=== PATIENT | female | born 1995 | race African-American/Black ===

== ENCOUNTER 2023-07-27 16:51 | Emergency (ER) | payer OTHER ==
[2023-07-27 17:21] VITALS: TEMP 99
[2023-07-27] MEDS ORDERED: LORazepam 0.5 MG TAB PO PRN (18:09)
[2023-07-27] MEDS ORDERED: LORazepam 2 MG/ML INJ IV PRN ×4 (18:09→20:18)
[2023-07-27] MEDS ORDERED: THIAMINE 100 MG/ML 2 ML VIAL IM STA (18:09)
[2023-07-27] MEDS ORDERED: LORazepam 1 MG TAB PO PRN ×4 (18:09)
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
[2023-07-27 18:45] LABS: Basophils % (A) 0 %; Eosinophils % (A) 1 %; HGB 12.9 gm/dL (11.4-16.0); Lymphocytes # (A) 1.6 k/uL (1.0-4.8); Lymphocytes % (A) 34 %; MCH 32.9 pg (25.0-35.0); MCV 96.7 fL (80.0-100.0); Mean Platelet Volume 7.9; Monocytes # (A) 0.3 k/uL (0-1.0); Monocytes % (A) 6 %; Neutrophils # (A) 2.8 k/uL (1.3-7.7); Neutrophils % (A) 57 %; Platelet Count 218 k/uL (150-450); RBC 3.93 m/uL (3.80-5.40); RDW 15.3 % (11.5-15.5); WBC 4.9 k/uL (3.8-10.6)
[2023-07-27 18:47] LABS: Appearance,Urine Clear (Clear); Color,Urine Amber; Protein,Urine Trace (Negative); Specific Gravity,Urine 1.025 (1.001-1.035)
[2023-07-27 18:48] LABS: Bilirubin,Urine Negative (Negative); Blood,Urine Negative (Negative); Glucose,Urine (UA) Negative (Negative); Ketones,Urine 1+ (Negative); Leukocyte Esterase,Urine Negative (Negative); Nitrite,Urine Negative (Negative); Urobilinogen,Urine <2.0 mg/dL (<2.0)
[2023-07-27] MEDS ORDERED: ONDANSETRON 4 MG/2 ML VIAL IVP STA (18:52)
[2023-07-27 19:11] LABS: ALT 117 U/L (4-34); African American GFR (CKD) >90 (>60 ml/min/1.73 sqM); Albumin 4.4 g/dL (3.5-5.0); Alcohol <10 mg/dL; Amylase 47 U/L (30-110); Anion Gap 10 mmol/L; Blood Urea Nitrogen 3 mg/dL (7-17); Calcium 9.2 mg/dL (8.4-10.2); Carbon Dioxide 28 mmol/L (22-30); Chloride 101 mmol/L (98-107); Glucose 84 mg/dL (74-99); Lipase 57 U/L (23-300); Non-African American GFR(CKD) >90 (>60 ml/min/1.73 sqM); Sodium 139 mmol/L (137-145); Total Bilirubin 0.9 mg/dL (0.2-1.3)
[2023-07-27 19:13] LABS: AST 204 U/L (14-36); Alkaline Phosphatase 142 U/L (38-126); Magnesium 1.3 mg/dL (1.6-2.3); Potassium 4.3 mmol/L (3.5-5.1)
[2023-07-27] MEDS ORDERED: KETOROLAC 15 MG/ML 1 ML VIAL IVP STA (19:28)
[2023-07-27] MEDS ORDERED: SODIUM CHLORIDE 0.9% 1,000 ML IV ONE (19:38)
[2023-07-27 20:02] VITALS: RESP 19
[2023-07-27] MEDS ORDERED: LORazepam 2 MG/ML INJ IV STA (22:42)
[2023-07-27 23:14] VITALS: BP 159/96; PULSE 96
[2023-07-28] MEDS ORDERED: THIAMINE 100 MG TAB PO SCH (09:00)
== END 2023-07-27 23:34 | disposition home or self-care (01) ==
LOC: EC 16:51
DX: S39.91XA Unspecified injury of abdomen, initial encounter (principal); F17.200 Nicotine dependence, unspecified, uncomplicated; Y04.0XXA Assault by unarmed brawl or fight, initial encounter
CPT/HCPCS: 99284 ×2; 96374 ×2; 96375 ×3; 96376 ×2; 96361 ×4; 36415; 80053; 82150; 82550; 83690; 83735; 85025; 81003; 81025; 96372; G0480; J2060; J3411; J2405; J1885; 80320

== ENCOUNTER 2024-09-04 16:46 | Observation (INO) | payer OTHER ==
[2024-09-04] MEDS ORDERED: LORazepam 2 MG/ML INJ IV PRN (17:33)
[2024-09-04 18:17] LABS: Basophils % (A) 0 %; Eosinophils % (A) 1 %; HCT 39.8 % (34.0-46.0); HGB 13.7 gm/dL (11.4-16.0); Lymphocytes # (A) 0.7 k/uL (1.0-4.8); Lymphocytes % (A) 26 %; MCH 32.1 pg (25.0-35.0); MCHC 34.4 g/dL (31.0-37.0); MCV 93.4 fL (80.0-100.0); Mean Platelet Volume 8.1; Monocytes # (A) 0.2 k/uL (0-1.0); Monocytes % (A) 7 %; Neutrophils # (A) 1.7 k/uL (1.3-7.7); Neutrophils % (A) 63 %; Platelet Count 133 k/uL (150-450); RBC 4.26 m/uL (3.80-5.40); RDW 14.4 % (11.5-15.5); WBC 2.6 k/uL (3.8-10.6)
[2024-09-04 18:48] LABS: Influenza A Detected (Not Detectd); Influenza B Not Detected (Not Detectd); RSV Not Detected (Not Detectd)
[2024-09-04] MEDS: SODIUM CHLORIDE 0.9% 1,000 ML IV STA ×3 (18:51→21:42)
[2024-09-04] MEDS: ACETAMINOPHEN TAB 500 MG TAB PO STA (18:52)
[2024-09-04] MEDS: IBUPROFEN 800 MG TAB PO STA (18:53)
[2024-09-04] MEDS: LORazepam 2 MG/ML INJ IV STA (18:54)
[2024-09-04] MEDS: ONDANSETRON 4 MG/2 ML VIAL IVP STA (18:55)
[2024-09-04 19:16] LABS: Chloride 106 mmol/L (98-107)
[2024-09-04 19:19] LABS: ALT 110 U/L (4-34); African American GFR (CKD) >90 (>60 ml/min/1.73 sqM); Anion Gap 11 mmol/L; Blood Urea Nitrogen 9 mg/dL (7-17); Calcium 8.1 mg/dL (8.4-10.2); Carbon Dioxide 18 mmol/L (22-30); Glucose 72 mg/dL (74-99); Non-African American GFR(CKD) >90 (>60 ml/min/1.73 sqM); Sodium 135 mmol/L (137-145)
[2024-09-04 19:36] LABS: Albumin 3.9 g/dL (3.5-5.0); Potassium 4.9 mmol/L (3.5-5.1); Total Protein 7.5 g/dL (6.3-8.2)
[2024-09-04 19:37] LABS: AST 217 U/L (14-36); Alkaline Phosphatase 123 U/L (38-126); Magnesium 1.3 mg/dL (1.6-2.3); Total Bilirubin 1.2 mg/dL (0.2-1.3)
[2024-09-04 19:40] LABS: Alcohol 194 mg/dL
--- NOTE | 2024-09-04 20:04 | XR ---
EXAMINATION TYPE: XR chest 2V DATE OF EXAM: 09/04/2024 7:16 PM COMPARISON: None. CLINICAL INDICATION: Female, 28 years old with history of fever, cough, TECHNIQUE: XR chest 2V view(s) obtained. FINDINGS: The heart size is normal. The pulmonary vasculature is normal. Mild streak atelectasis in the lateral right perihilar region IMPRESSION: 1. Streaky atelectasis right hilar region [facility], , 09/04/2024 8:02 PM
[2024-09-04 20:10] LABS: HCG,Qualitative Serum Not Detected
[2024-09-04] MEDS ORDERED: ONDANSETRON 4 MG/2 ML VIAL IVP PRN (21:19)
[2024-09-04] MEDS ORDERED: NALOXONE 0.4 MG/ML 1 ML VIAL IV PRN (21:19)
--- NOTE | 2024-09-04 21:24 | ED ---
General Adult HPI - General Chief complaint: Alcohol Stated complaint: etoh Time Seen by Provider: 09/04/24 17:25 Source: patient, EMS, RN notes reviewed, old records reviewed Mode of arrival: EMS - History of Present Illness Initial comments: Patient is a 28-year-old female presents emergency department complaining of fevers, cough, congestion, alcohol intoxication. Has a history remarkable for alcohol withdrawals with seizures. Is not compliant with medications. States she has been feeling febrile with a mild headache and generalized bodyaches for a few days. Presented to [facility] for admission for alcohol intoxication however was sent here due to being treatment, intoxicated with alcohol. Endorses cough, congestion. Denies nausea or vomiting. Denies diarrhea. Presents for further evaluation at this time. - Related Data Home Medications Medication Instructions Recorded Confirmed Cariprazine HCl [Vraylar] 6 mg PO DAILY 09/04/24 09/04/24 Folic Acid 1 mg PO DAILY 09/04/24 09/04/24 LORazepam [Ativan] 1 mg PO Q8H PRN 09/04/24 09/04/24 Metoprolol Succinate [Metoprolol 25 mg PO DAILY 09/04/24 09/04/24 Succinate ER] Multivitamins, Thera [Multivitamin 1 tab PO DAILY 09/04/24 09/04/24 (formulary)] Naltrexone HCl [Revia] 50 mg PO DAILY 09/04/24 09/04/24 Ondansetron [Zofran] 4 mg PO Q6H PRN 09/04/24 09/04/24 QUEtiapine FUMARATE [SEROquel] 600 mg PO HS 09/04/24 09/04/24 Venlafaxine HCl [Effexor XR] 75 mg PO DAILY 09/04/24 09/04/24 amLODIPine [Norvasc] 10 mg PO DAILY 09/04/24 09/04/24 Allergies Allergy/AdvReac Type Severity Reaction Status Date / Time No Known Allergies Allergy Verified 09/04/24 18:34 Review of Systems ROS Statement: Those systems with pertinent positive or pertinent negative responses have been documented in the HPI. ROS Other: All systems not noted in ROS Statement are negative. Past Medical History Past Medical History: No Reported History, Hypertension Past Surgical History: No Surgical Hx Reported Past Psychological History: Anxiety, Bipolar Smoking Status: Current every day smoker Past Alcohol Use History: Abuse Past Drug Use History: None Reported Course Vital Signs 09/04/24 09/04/24 09/04/24 16:59 19:35 21:27 Temperature 101.0 F H 99.2 F 100.5 F H Pulse Rate 123 H 143 H Respiratory 18 18 Rate Blood Pressure 139/83 135/83 O2 Sat by Pulse 100 98 Oximetry Medical Decision Making - Medical Decision Making Was pt. sent in by a medical professional or institution (, VI, SOLUTION ADVISOR, urgent care, hospital, or half-way...) When possible be specific @ -Sent from [facility] for alcohol intoxication as well as fever. Did you speak to anyone other than the patient for history (EMS, parent, family, police, friend...)? What history was obtained from this source @ -No Did you review nursing and triage notes (agree or disagree)? Why? @ -I reviewed and agree with nursing and triage notes Were old charts reviewed (outside hosp., previous admission, EMS record, old EKG, old radiological studies, urgent care reports/EKG's, half-way records)? Report findings @ -Old charts reviewed confirming patient's prior medications including metoprolol. Differential Diagnosis (chest pain, altered mental status, abdominal pain women, abdominal pain men, vaginal bleeding, weakness, fever, dyspnea, syncope, headache, dizziness, GI bleed, back pain, seizure, CVA, palpatations, mental health, musculoskeletal)? @ -Alcohol tox occasion, alcohol drawls, influenza, COVID, flu, RSV. This list is not all inclusive. EKG interpreted by me (3pts min.). @ -As above X-rays interpreted by me (1pt min.). @ -Chest x-ray reveals no obvious acute cardiopulmonary process. CT interpreted by me (1pt min.). @ -None done U/S interpreted by me (1pt. min.). @ -None done What testing was considered but not performed or refused? (CT, X-rays, U/S, labs)? Why? @ -None What meds were considered but not given or refused? Why? @ -None Did you discuss the management of the patient with other professionals (professionals i.e. VI Garcia, SOLUTION ADVISOR, lab, RT, psych nurse, social insurance analyst, chicken boner, teacher, plant protection officer, director case management)? Give summary @ -Discussed with the admitting provider, Dr. Will who accepted the admission. Was smoking cessation discussed for >3mins.? @ -No Was critical care preformed (if so, how long)? @ -No Were there social determinants of health that impacted care today? How? (Homelessness, low income, unemployed, alcoholism, drug addiction, transportation, low edu. Level, literacy, decrease access to med. care, [facility], rehab)? @ -No Was there de-escalation of care discussed even if they declined (Discuss DNR or withdrawal of care, Hospice)? DNR status @ -No What co-morbidities impacted this encounter? (DM, HTN, Smoking, COPD, CAD, Cancer, CVA, ARF, Chemo, Hep., AIDS, mental health diagnosis, sleep apnea, morbid obesity)? @ -Alcohol abuse with alcohol withdrawal history Was patient admitted / discharged? Hospital course, mention meds given and route, prescriptions, significant lab abnormalities, going to OR and other pertinent info. @ -Patient presents emergency department with febrile illness as well as alcohol intoxication and mild alcohol withdrawals. Has a history of significant alcohol withdrawals. We will obtain generalized workup. Patient agreement this plan. Vitals are remarkable for febrile illness and patient will be given IV fluids, antipyretic medications. She was in agreement this plan. Patient placed on CIWA protocol. Patient administered a dose of IV Ativan. EKG revealed sinus tachycardia. Laboratory studies remarkable for hypomagnesemia which was replenished. Patient is not toxic with alcohol 194. Patient is influenza A positive. Chest x-ray unremarkable. On reevaluation, patient leta tachycardic. It does appear she is on metoprolol and states she has been noncompliant with medications. She will be given a dose of metoprolol admitted for alcohol intoxication, influenza infection, with her history of alcohol withdrawals. Patient was in agreement this plan. I spoke with the admitting provider, Dr. Will who accepted the admission. Undiagnosed new problem with uncertain prognosis? @ -No Drug Therapy requiring intensive monitoring for toxicity (Heparin, Nitro, Insulin, Cardizem)? @ -No Were any procedures done? @ -No Diagnosis/symptom? @ -Influenza A infection, alcohol intoxication, history of alcohol withdrawals, hypomagnesemia Acute, or Chronic, or Acute on Chronic? @ -Acute Uncomplicated (without systemic symptoms) or Complicated (systemic symptoms)? @ -Complicated Side effects of treatment? @ -No Exacerbation, Progression, or Severe Exacerbation? @ -No Poses a threat to life or bodily function? How? (Chest pain, [place], [place], pneumonia, PE, COPD, DKA, ARF, appy, cholecystitis, CVA, Diverticulitis, Homicidal, Suicidal, threat to staff... and all critical care pts) @ -Yes - Lab Data Result diagrams: 09/04/24 18:10 09/04/24 18:54 Lab Results 09/04/24 09/04/24 09/04/24 Range/Units 18:00 18:10 18:14 WBC 2.6 L (3.8-10.6) k/uL RBC 4.26 (3.80-5.40) m/uL Hgb 13.7 (11.4-16.0) gm/dL Hct 39.8 (34.0-46.0) % MCV 93.4 (80.0-100.0) fL MCH 32.1 (25.0-35.0) pg MCHC 34.4 (31.0-37.0) g/dL RDW 14.4 (11.5-15.5) % Plt Count 133 L (150-450) k/uL MPV 8.1 Neutrophils % 63 % Lymphocytes % 26 % Monocytes % 7 % Eosinophils % 1 % Basophils % 0 % Neutrophils # 1.7 (1.3-7.7) k/uL Lymphocytes # 0.7 L (1.0-4.8) k/uL Monocytes # 0.2 (0-1.0) k/uL Eosinophils # 0.0 (0-0.7) k/uL Basophils # 0.0 (0-0.2) k/uL Sodium (137-145) mmol/L Potassium (3.5-5.1) mmol/L Chloride (98-107) mmol/L Carbon Dioxide (22-30) mmol/L Anion Gap mmol/L BUN (7-17) mg/dL Creatinine (0.52-1.04) mg/dL Est GFR (CKD-EPI)AfAm (>60 ml/min/1.73 sqM) Est GFR (CKD-EPI)NonAf (>60 ml/min/1.73 sqM) Glucose (74-99) mg/dL Calcium (8.4-10.2) mg/dL Magnesium (1.6-2.3) mg/dL Total Bilirubin (0.2-1.3) mg/dL AST (14-36) U/L ALT (4-34) U/L Alkaline Phosphatase (38-126) U/L Total Protein (6.3-8.2) g/dL Albumin (3.5-5.0) g/dL HCG, Qual Serum Alcohol mg/dL Influenza Type A (PCR) Detected A (Not Detectd) Influenza Type B (PCR) Not Detected (Not Detectd) RSV (PCR) Not Detected (Not Detectd) SARS-CoV-2 (PCR) Not Detected (Not Detectd) Group A Strep (PCR) NOT DETECTED (Not Detectd) 09/04/24 Range/Units 18:54 WBC (3.8-10.6) k/uL RBC (3.80-5.40) m/uL Hgb (11.4-16.0) gm/dL Hct (34.0-46.0) % MCV (80.0-100.0) fL MCH (25.0-35.0) pg MCHC (31.0-37.0) g/dL RDW (11.5-15.5) % Plt Count (150-450) k/uL MPV Neutrophils % % Lymphocytes % % Monocytes % % Eosinophils % % Basophils % % Neutrophils # (1.3-7.7) k/uL Lymphocytes # (1.0-4.8) k/uL Monocytes # (0-1.0) k/uL Eosinophils # (0-0.7) k/uL Basophils # (0-0.2) k/uL Sodium 135 L (137-145) mmol/L Potassium 4.9 (3.5-5.1) mmol/L Chloride 106 (98-107) mmol/L Carbon Dioxide 18 L (22-30) mmol/L Anion Gap 11 mmol/L BUN 9 (7-17) mg/dL Creatinine 0.58 (0.52-1.04) mg/dL Est GFR (CKD-EPI)AfAm >90 (>60 ml/min/1.73 sqM) Est GFR (CKD-EPI)NonAf >90 (>60 ml/min/1.73 sqM) Glucose 72 L (74-99) mg/dL Calcium 8.1 L (8.4-10.2) mg/dL Magnesium 1.3 L (1.6-2.3) mg/dL Total Bilirubin 1.2 (0.2-1.3) mg/dL AST 217 H (14-36) U/L ALT 110 H (4-34) U/L Alkaline Phosphatase 123 (38-126) U/L Total Protein 7.5 (6.3-8.2) g/dL Albumin 3.9 (3.5-5.0) g/dL HCG, Qual Not Detected Serum Alcohol 194 mg/dL Influenza Type A (PCR) (Not Detectd) Influenza Type B (PCR) (Not Detectd) RSV (PCR) (Not Detectd) SARS-CoV-2 (PCR) (Not Detectd) Group A Strep (PCR) (Not Detectd) - EKG Data -: EKG Interpreted by Me EKG Comments: 12-lead Electrocardiogram Interpretation Note EKG was reviewed and interpreted by myself. 12-lead ECG performed at 2120 is interpreted by me as revealing sinus tachycardia at a rate of 131 beats per minute. Ava is normal. LA interval is 132 ms, QRS durations 84 ms, QTc is 410 ms.. There were no ST or T wave abnormalities to suggest myocardial ischemia or injury. R wave progression across the precordium was satisfactory. By my in terpretation this EKG is non-diagnostic for acute ischemia. Disposition Clinical Impression: Alcoholic intoxication, Alcohol withdrawal, Influenza A, Hypomagnesemia Disposition: ADMITTED IP TO THIS HOSP Condition: Stable Referrals: None,Stated [Primary Care Provider] - 1-2 days Time of Disposition: 20:20
[2024-09-04] MEDS ORDERED: SODIUM CHLORIDE 0.9% 1,000 ML IV SCH (21:30)
[2024-09-04] MEDS ORDERED: POTASSIUM CHLORIDE ER 20 MEQ TAB.ER PO STA (21:40)
[2024-09-04] MEDS: MAGNESIUM SULFATE-D5W PMX 1 GM in DEXTROSE/WATER 1 100ML.BAG IVPB ONE (21:41)
[2024-09-04] MEDS: IBUPROFEN 600 MG TAB PO STA (21:51)
[2024-09-04] MEDS: METOPROLOL SUCCINATE (ER) 25 MG TAB.ER.24H PO STA (21:52)
[2024-09-04] MEDS: LORazepam 2 MG/ML INJ IV PRN (21:53)
[2024-09-05] MEDS: QUEtiapine 200 MG TAB PO STA (00:10)
[2024-09-05] MEDS: LORATADINE 10 MG TAB PO STA (00:10)
[2024-09-05] MEDS: LORazepam 2 MG/ML INJ IV PRN (02:34)
[2024-09-05 04:30] LABS: Basophils % (A) 1 %; Eosinophils % (A) 1 %; HCT 34.7 % (34.0-46.0); HGB 11.4 gm/dL (11.4-16.0); Lymphocytes # (A) 0.3 k/uL (1.0-4.8); Lymphocytes % (A) 19 %; MCH 31.8 pg (25.0-35.0); MCV 96.2 fL (80.0-100.0); Mean Platelet Volume 6.9; Monocytes # (A) 0.1 k/uL (0-1.0); Monocytes % (A) 6 %; Neutrophils # (A) 1.1 k/uL (1.3-7.7); Neutrophils % (A) 72 %; Platelet Count 105 k/uL (150-450); WBC 1.5 k/uL (3.8-10.6)
[2024-09-05 04:44] LABS: ALT 127 U/L (4-34); AST 414 U/L (14-36); African American GFR (CKD) >90 (>60 ml/min/1.73 sqM); Albumin 3.2 g/dL (3.5-5.0); Alkaline Phosphatase 114 U/L (38-126); Anion Gap 7 mmol/L; Blood Urea Nitrogen 12 mg/dL (7-17); Calcium 7.6 mg/dL (8.4-10.2); Carbon Dioxide 22 mmol/L (22-30); Chloride 107 mmol/L (98-107); Glucose 95 mg/dL (74-99); Non-African American GFR(CKD) >90 (>60 ml/min/1.73 sqM); Potassium 3.7 mmol/L (3.5-5.1); Sodium 136 mmol/L (137-145); Total Bilirubin 0.5 mg/dL (0.2-1.3); Total Protein 6.3 g/dL (6.3-8.2)
[2024-09-05] MEDS: IBUPROFEN 400 MG TAB PO PRN (05:45)
[2024-09-05] MEDS: ACETAMINOPHEN TAB 325 MG TAB PO PRN (06:53)
[2024-09-05] MEDS: amLODIPine 10 MG TAB PO SCH (08:05)
[2024-09-05] MEDS: METOPROLOL SUCCINATE (ER) 25 MG TAB.ER.24H PO SCH (08:05)
[2024-09-05] MEDS: VENLAFAXINE HCL ER 75 MG CAP PO SCH (08:05)
[2024-09-05] MEDS: NALTREXONE HCL 50 MG TAB PO SCH (08:05)
[2024-09-05] MEDS: NON FORMULARY DRUG (Cariprazine Hcl [Vraylar] 6 MG Capsule) PO SCH (09:10)
[2024-09-05] MEDS: FOLIC ACID 1 MG TAB PO SCH (09:16)
[2024-09-05] MEDS: HYDROcodone/APAP 5-325MG 1 EACH TAB PO STA (09:16)
[2024-09-05] MEDS: ACETAMINOPHEN IV (For NPO) 1,000 MG in EMPTY BAG 1 BAG IVPB ONE (09:16)
[2024-09-05] MEDS: OSELTAMIVIR 75 MG CAP PO SCH (09:17)
[2024-09-05] MEDS: MULTIVITAMINS, THERA 1 EACH TAB PO SCH (09:17)
[2024-09-05 11:13] LABS: Appearance,Urine Cloudy (Clear); Bacteria,Urine Rare /hpf; Bilirubin,Urine Negative (Negative); Blood,Urine Negative (Negative); Color,Urine Yellow; Glucose,Urine (UA) Negative (Negative); Ketones,Urine Negative (Negative); Leukocyte Esterase,Urine Negative (Negative); Mucus,Urine Rare /hpf; Nitrite,Urine Negative (Negative); PH, Urine 5.5 (5.0-8.0); Protein,Urine 1+ (Negative); Specific Gravity,Urine 1.022 (1.001-1.035); Squamous Epithelial Cell,Urine 5 /hpf (0-4); Urobilinogen,Urine <2.0 mg/dL (<2.0); WBC,Urine 3 /hpf (0-5)
--- NOTE | 2024-09-05 12:32 | P.HPIM ---
History of Present Illness 28-year-old female came in with complaints of fever cough and congestion found to have influenza A infection patient lives at [facility] last drink was 2 days ago and patient is presently having withdrawals as well patient d rinks about 3 pints of hard liquor every day is willing to quit alcohol. Patient is having high-grade fevers is tachycardic at this time. Patient's liver enzymes are elevated as well secondary to alcoholism. REVIEW OF SYSTEMS: All other systems are negative except those mentioned in the HPI PHYSICAL EXAMINATION: GENERAL: The patient is alert and oriented x3, not in any acute distress. Well developed, well nourished. HEENT: Pupils are round and equally reacting to light. EOMI. No scleral icterus. No conjunctival pallor. Normocephalic, atraumatic. No pharyngeal erythema. No thyromegaly. CARDIOVASCULAR: S1 and S2 present. No murmurs, rubs, or gallops. PULMONARY: Chest is clear to auscultation, no wheezing or crackles. ABDOMEN: Soft, nontender, nondistended, normoactive bowel sounds. No palpable organomegaly. MUSCULOSKELETAL: No joint swelling or deformity. EXTREMITIES: No cyanosis, clubbing, or pedal edema. NEUROLOGICAL: Gross neurological examination did not reveal any focal deficits. SKIN: No rashes. Assessment and plan -Sepsis secondary to influenza infection patient is on Tamiflu will continue with IV fluids will continue IV fluids to lactated Ringer's because of concerns of hyperchloremic metabolic acidosis. -Alcohol withdrawal patient is on Ativan CIWA protocol will add Librium thiamine. -Alcoholic hepatitis expected to improve -Sinus tachycardia secondary to fever and alcohol withdrawals DVT prophylaxis: Lovenox Past Medical History Past Medical History: No Reported History, Hypertension Past Surgical History: No Surgical Hx Reported Past Psychological History: Anxiety, Bipolar Smoking Status: Current every day smoker Past Alcohol Use History: Abuse Past Drug Use History: None Reported Medications and Allergies Home Medications Medication Instructions Recorded Confirmed Type Cariprazine HCl [Vraylar] 6 mg PO DAILY 09/04/24 09/04/24 History Folic Acid 1 mg PO DAILY 09/04/24 09/04/24 History LORazepam [Ativan] 1 mg PO Q8H PRN 09/04/24 09/04/24 History Metoprolol Succinate [Metoprolol 25 mg PO DAILY 09/04/24 09/04/24 History Succinate ER] Multivitamins, Thera [Multivitamin 1 tab PO DAILY 09/04/24 09/04/24 History (formulary)] Naltrexone HCl [Revia] 50 mg PO DAILY 09/04/24 09/04/24 History Ondansetron [Zofran] 4 mg PO Q6H PRN 09/04/24 09/04/24 History QUEtiapine FUMARATE [SEROquel] 600 mg PO HS 09/04/24 09/04/24 History Venlafaxine HCl [Effexor XR] 75 mg PO DAILY 09/04/24 09/04/24 History amLODIPine [Norvasc] 10 mg PO DAILY 09/04/24 09/04/24 History Allergies Allergy/AdvReac Type Severity Reaction Status Date / Time No Known Allergies Allergy Verified 09/04/24 18:34 Physical Exam Vitals: Vital Signs Temp Pulse Resp BP Pulse Ox 09/05/24 10:35 100.8 F H 124 H 18 127/84 96 09/05/24 08:55 102.9 F H 09/05/24 08:07 103 F H 140 H 18 153/99 98 09/05/24 06:00 102.1 F H 115 H 169/89 09/05/24 05:42 101.7 F H 09/05/24 05:16 120 H 16 133/108 96 09/05/24 02:00 115 H 18 150/100 96 09/05/24 01:00 114 H 20 132/85 96 09/05/24 00:09 115 H 20 132/85 96 09/04/24 21:27 100.5 F H 143 H 18 135/83 98 09/04/24 19:35 99.2 F 09/04/24 16:59 101.0 F H 123 H 18 139/83 100 Intake and Output 09/04/24 09/05/24 09/05/24 22:59 06:59 14:59 Other: Weight 117.934 kg Results CBC & Chem 7: 09/05/24 03:51 09/05/24 03:51 Labs: Abnormal Lab Results - Last 24 Hours (Table) 09/04/24 09/04/24 09/04/24 Range/Units 18:00 18:10 18:54 WBC 2.6 L (3.8-10.6) k/uL RBC (3.80-5.40) m/uL Plt Count 133 L (150-450) k/uL Neutrophils # (1.3-7.7) k/uL Lymphocytes # 0.7 L (1.0-4.8) k/uL Sodium 135 L (137-145) mmol/L Carbon Dioxide 18 L (22-30) mmol/L Glucose 72 L (74-99) mg/dL Calcium 8.1 L (8.4-10.2) mg/dL Magnesium 1.3 L (1.6-2.3) mg/dL AST 217 H (14-36) U/L ALT 110 H (4-34) U/L Albumin (3.5-5.0) g/dL Urine Appearance (Clear) Urine Protein (Negative) Ur Squamous Epith Cells (0-4) /hpf Urine Bacteria (None) /hpf Urine Mucus (None) /hpf Influenza Type A (PCR) Detected A (Not Detectd) 09/05/24 09/05/24 09/05/24 Range/Units 03:51 03:51 11:05 WBC 1.5 L (3.8-10.6) k/uL RBC 3.60 L (3.80-5.40) m/uL Plt Count 105 L (150-450) k/uL Neutrophils # 1.1 L (1.3-7.7) k/uL Lymphocytes # 0.3 L (1.0-4.8) k/uL Sodium 136 L (137-145) mmol/L Carbon Dioxide (22-30) mmol/L Glucose (74-99) mg/dL Calcium 7.6 L (8.4-10.2) mg/dL Magnesium (1.6-2.3) mg/dL AST 414 H (14-36) U/L ALT 127 H (4-34) U/L Albumin 3.2 L (3.5-5.0) g/dL Urine Appearance Cloudy H (Clear) Urine Protein 1+ H (Negative) Ur Squamous Epith Cells 5 H (0-4) /hpf Urine Bacteria Rare H (None) /hpf Urine Mucus Rare H (None) /hpf Influenza Type A (PCR) (Not Detectd)
[2024-09-05] MEDS: LACTATED RINGERS 1,000 ML IV SCH (12:39)
[2024-09-05] MEDS: chlordiazePOXIDE 25 MG CAP PO SCH (15:47)
[2024-09-05] MEDS: THIAMINE 100 MG TAB PO SCH (16:52)
[2024-09-05] MEDS ORDERED: BENZOCAINE/MENTHOL LOZENG 1 EACH LOZENGE MUCOUS MEM PRN (19:08)
[2024-09-05] MEDS: BENZONATATE 100 MG CAP PO PRN (21:28)
[2024-09-05] MEDS: QUEtiapine 200 MG TAB PO SCH (21:28)
[2024-09-06] MEDS: ENOXAPARIN 40 MG/0.4 ML SYRINGE SQ SCH (09:33)
[2024-09-06] MEDS: guaiFENesin SYRUP 100MG/5ML 200 MG/10 ML CUP PO PRN (09:55)
[2024-09-06 10:28] LABS: Magnesium 1.4 mg/dL (1.5-2.4)
[2024-09-06 10:34] LABS: ALT 100 U/L (8-44); AST 287 U/L (13-35); Alkaline Phosphatase 88 U/L (41-126); Blood Urea Nitrogen 5.4 mg/dL (9.0-27.0); Calcium 6.9 mg/dL (8.7-10.3); Chloride 104 mmol/L (96-109); Globulin 2.5 g/dL (1.6-3.3); Glucose 89 mg/dL (70-110); Potassium 3.1 mmol/L (3.5-5.5); Sodium 137 mmol/L (135-145); Total Bilirubin 0.4 mg/dL (0.3-1.2); Total Protein 5.5 g/dL (6.2-8.2)
[2024-09-06 10:48] LABS: HCT 32.8 % (37.2-46.3); HGB 11.1 g/dL (12.0-15.0); MCH 31.3 pg (27.0-32.0); MCHC 33.8 g/dL (32.0-37.0); MCV 92.4 FL (80.0-97.0); Mean Platelet Volume 10.8 FL (9.5-12.2); NRBC Per 100 WBC 0 X 10*3/uL (0.00-0.01); Platelet Count 100 X 10*3/uL (140-440); RBC 3.55 X 10*6/uL (4.10-5.20); RDW 13.3 % (11.5-14.5); WBC 1.47 X 10*3/uL (4.50-10.00)
[2024-09-06] MEDS ORDERED: Magnesium Replacement Protocol 1 EACH MISC MISCELLANE PRN (16:49)
--- NOTE | 2024-09-06 16:55 | P.PN ---
Subjective Progress Note Date: 09/06/24 28-year-old female came in with complaints of fever cough and congestion found to have influenza A infection patient lives at [facility] last drink was 2 days ago and patient is presently having withdrawals as well patient drinks about 3 pints of hard liquor every day is willing to quit alcohol. Patient is having high-grade fevers is tachycardic at this time. Patient's liver enzymes are elevated as well secondary to alcoholism. 09/06/2024 Patient evaluated in follow-up in the medical floor. Was found to be positive for influenza A. She is reporting some cough and congestion today. She also had continued temps overnight as high as 102.6. On alternating tylenol and motrin. Fever and heart rate are slowly improving. Unsure of railroad requirements for discharge. Remains on IV ativan for acute alcohol withdrawal and last dose was earlier this AM. She is not having significant withdrawal symptoms at this time. Potassium 3.1, magnesium 1.4. White blood cell count 1.47. Review of Systems Constitutional: Denied any fatigue denied any fever. Cardio vascular: denied any chest pain, palpitations Gastrointestinal: denied any nausea, vomiting, diarrhea Pulmonary: Reports shortness of breath cough Neurologic denied any new focal deficits All inpatient medications were reviewed and appropriate changes in these medications as dictated in the interval history and assessment and plan. PHYSICAL EXAMINATION: GENERAL: The patient is alert and oriented x3, not in any acute distress. Well developed, well nourished. HEENT: Pupils are round and equally reacting to light. EOMI. No scleral icterus. No conjunctival pallor. Normocephalic, atraumatic. No pharyngeal erythema. No thyromegaly. CARDIOVASCULAR: S1 and S2 present. No murmurs, rubs, or gallops. PULMONARY: Chest is clear to auscultation, no wheezing or crackles. Diminished. ABDOMEN: Soft, nontender, nondistended, normoactive bowel sounds. No palpable organomegaly. MUSCULOSKELETAL: No joint swelling or deformity. EXTREMITIES: No cyanosis, clubbing, or pedal edema. NEUROLOGICAL: Gross neurological examination did not reveal any focal deficits. SKIN: No rashes. Assessment and plan -Sepsis secondary to influenza infection patient is on Tamiflu will continue with IV fluids will continue IV fluids to lactated Ringer's because of concerns of hyperchloremic metabolic acidosis. -Alcohol withdrawal patient is on Ativan CIWA protocol will add Librium thiamine. -Alcoholic hepatitis expected to improve -Sinus tachycardia secondary to fever and alcohol withdrawals improving DVT prophylaxis: Lovenox Continue supportive care. Possible discharge in the next 24 hours. Patient likely wont be able to return to [facility] due to the acute influenza A. Replace magnesium and potassium and repeat blood work in the AM. The impression and plan of care has been dictated by Rachna Beckford, Nurse Practitioner as directed. Dr. Olivia MD I have performed a history and physical examination and medical decision making of this patient, discussed the same with the dictator, and agree with the dictators assessment and plan as written, documented as a scribe. Based on total visit time, I have performed more than 50% of this visit. Objective - Vital Signs Vital signs: Vital Signs Temp 98.9 F 09/06/24 14:34 Pulse 98 09/06/24 14:34 Resp 15 09/06/24 14:34 BP 144/99 09/06/24 14:34 Pulse Ox 97 09/06/24 14:34 FiO2 Intake & Output 09/05/24 09/06/24 09/06/24 18:59 06:59 18:59 Weight 117.934 kg Other: # Voids 2 3 - Labs CBC & Chem 7: 09/06/24 04:42 09/06/24 04:42 Labs: Abnormal Lab Results - Last 24 Hours (Table) 09/06/24 09/06/24 Range/Units 04:42 04:42 WBC 1.47 A* (4.50-10.00) X 10*3/uL RBC 3.55 L (4.10-5.20) X 10*6/uL Hgb 11.1 L (12.0-15.0) g/dL Hct 32.8 L (37.2-46.3) % Plt Count 100 L (140-440) X 10*3/uL Potassium 3.1 L (3.5-5.5) mmol/L Carbon Dioxide 20.0 L (21.6-31.8) mmol/L Anion Gap 13.00 H (4.00-12.00) mmol/L BUN 5.4 L (9.0-27.0) mg/dL BUN/Creatinine Ratio 9.00 L (12.00-20.00) Ratio Calcium 6.9 L (8.7-10.3) mg/dL Magnesium 1.4 L (1.5-2.4) mg/dL AST 287 H (13-35) U/L ALT 100 H (8-44) U/L Total Protein 5.5 L (6.2-8.2) g/dL Albumin 3.0 L (3.8-4.9) g/dL Albumin/Globulin Ratio 1.20 L (1.60-3.17) Ratio Assessment and Plan Time with Patient: Less than 30
[2024-09-06] MEDS: POTASSIUM CHLORIDE ER 20 MEQ TAB.ER PO SCH (17:10)
[2024-09-06] MEDS: MAGNESIUM SULFATE-D5W PMX 1 GM in DEXTROSE/WATER 1 100ML.BAG IVPB SCH (17:10)
[2024-09-07 11:51] LABS: Basophils # (A) 0.02 X 10*3/uL (0.00-0.10); Eosinophils # (A) 0.05 X 10*3/uL (0.04-0.35); Eosinophils % (A) 2.4 %; HGB 12.8 g/dL (12.0-15.0); Lymphocytes # (A) 1.33 X 10*3/uL (0.90-5.00); Lymphocytes % (A) 64.9 %; MCH 32.2 pg (27.0-32.0); MCHC 33.7 g/dL (32.0-37.0); MCV 95.7 FL (80.0-97.0); Mean Platelet Volume 11.7 FL (9.5-12.2); Monocytes # (A) 0.14 X 10*3/uL (0.20-1.00); Monocytes % (A) 6.8 %; NRBC Per 100 WBC 0.02 X 10*3/uL (0.00-0.01); Neutrophils % (A) 24.4 %; Platelet Count 98 X 10*3/uL (140-440); RBC 3.97 X 10*6/uL (4.10-5.20); RDW 13.8 % (11.5-14.5); WBC 2.05 X 10*3/uL (4.50-10.00)
[2024-09-07 12:42] LABS: BUN/Creat Ratio <5.83 Ratio (12.00-20.00); Blood Urea Nitrogen <3.5 mg/dL (9.0-27.0); Calcium 7.3 mg/dL (8.7-10.3); Chloride 109 mmol/L (96-109); Glucose 95 mg/dL (70-110); Potassium 3.9 mmol/L (3.5-5.5); Sodium 141 mmol/L (135-145)
[2024-09-07 12:49] LABS: Magnesium 2.1 mg/dL (1.5-2.4)
[2024-09-07 14:24] VITALS: BP 137/81; PULSE 102; RESP 18; TEMP 98.8
--- NOTE | 2024-09-10 14:59 | P.DS ---
Providers Date of admission: 09/04/24 21:20 Expected date of discharge: 09/07/24 Attending physician: Kristal Will MD Primary care physician: Stated None Hospital Course: Final diagnosis -Sepsis secondary to influenza A infection patient is on Tamiflu -Alcohol withdrawal, patient is maintained on CIWA protocol -Alcoholic hepatitis, expected to improve with alcohol cessation -Sinus tachycardia secondary to fever and alcohol withdrawals, improving -Morbid obesity with a BMI of 47.6 -GI prophylaxis DVT prophylaxis Full code Discharge disposition Patient is being discharged in a stable condition with guarded prognosis to home. Patient will follow-up with primary care provider in [place] in the outpatient setting upon discharge. Patient is to continue with complete alcohol cessation and complete the course of Tamiflu. Recommend inpatient alcohol rehab once recovered from influenza. Total time taken is greater than 35 minutes. Hospital course This is a 28-year-old female who was recently admitted with sepsis including tachycardia, fevers, elevated white count and found to have influenza A infection. Patient was started on Tamiflu and also CIWA protocol as patient was recently at [facility] for alcohol inpatient rehab. Patient likely not able to return to [facility] given influenza A diagnosis and will need outpatient follow-up. Patient reports she would like to go home and nursing staff working on transportation home. Patient does live in the [place] area. Patient will continue with Tamiflu to complete the course. Currently no reports of chest pain, shortness of breath, or palpitations. Patient is afebrile. No reports of nausea or vomiting and patient is tolerating diet. Patient will be discharged home today. Physical exam: Gen: This is a 28-year-old female who is awake, alert and oriented x 3, well- developed, morbidly obese HEENT: Head is atraumatic, normocephalic. Pupils equal, round. Sclerae is anicteric. NECK: Supple. No JVD. No lymphadenopathy. No thyromegaly. LUNGS: Diminished breath sounds bilaterally with some scattered rhonchi. No intercostal retractions. HEART: Regular rate and rhythm. No murmur. ABDOMEN: Soft. Obese. Bowel sounds are present. No masses. No tenderness. EXTREMITIES: No pedal edema. No calf tenderness. NEUROLOGICAL: Patient is awake, alert and oriented x3. Cranial nerves 2 through 12 are grossly intact. Please refer to medication reconciliation sheet for a list of medications. The impression and plan of care has been dictated by Ashley Patterson, Nurse Practitioner as directed. Dr. Chloe MD I have performed a history and examination and MDM of this patient, discussed the same with the dictator, and agree with the dictator's assessment and plan as written ,documented as a scribe. Based on total visit time, I have performed more than 50% of the visit. Patient Condition at Discharge: Stable Plan - Discharge Summary New Discharge Prescriptions: New Ibuprofen [Motrin] 400 mg PO Q6HR PRN tab PRN Reason: Mild Pain Or Fever > 100.5 chlordiazePOXIDE HCl [Librium] 25 mg PO TID #6 cap Oseltamivir [Tamiflu] 75 mg PO Q12HR 3 Days #6 cap Acetaminophen Tab [Tylenol] 650 mg PO Q6HR PRN tab PRN Reason: Mild Pain Or Fever > 100.5 Thiamine [Vitamin B-1] 100 mg PO BID@1200,1700 #60 tab Continue Metoprolol Succinate [Metoprolol Succinate ER] 25 mg PO DAILY LORazepam [Ativan] 1 mg PO Q8H PRN PRN Reason: Anxiety Folic Acid 1 mg PO DAILY Multivitamins, Thera [Multivitamin (formulary)] 1 tab PO DAILY amLODIPine [Norvasc] 10 mg PO DAILY Ondansetron [Zofran] 4 mg PO Q6H PRN PRN Reason: Nausea Naltrexone HCl [Revia] 50 mg PO DAILY QUEtiapine FUMARATE [SEROquel] 600 mg PO HS Cariprazine HCl [Vraylar] 6 mg PO DAILY Venlafaxine HCl [Effexor XR] 75 mg PO DAILY Discharge Medication List Cariprazine HCl [Vraylar] 6 mg PO DAILY 09/04/24 [History] Folic Acid 1 mg PO DAILY 09/04/24 [History] LORazepam [Ativan] 1 mg PO Q8H PRN 09/04/24 [History] Metoprolol Succinate [Metoprolol Succinate ER] 25 mg PO DAILY 09/04/24 [History] Multivitamins, Thera [Multivitamin (formulary)] 1 tab PO DAILY 09/04/24 [History] Naltrexone HCl [Revia] 50 mg PO DAILY 09/04/24 [History] Ondansetron [Zofran] 4 mg PO Q6H PRN 09/04/24 [History] QUEtiapine FUMARATE [SEROquel] 600 mg PO HS 09/04/24 [History] Venlafaxine HCl [Effexor XR] 75 mg PO DAILY 09/04/24 [History] amLODIPine [Norvasc] 10 mg PO DAILY 09/04/24 [History] Acetaminophen Tab [Tylenol] 650 mg PO Q6HR PRN tab 09/07/24 [Rx] Ibuprofen [Motrin] 400 mg PO Q6HR PRN tab 09/07/24 [Rx] Oseltamivir [Tamiflu] 75 mg PO Q12HR 3 Days #6 cap 09/07/24 [Rx] Thiamine [Vitamin B-1] 100 mg PO BID@1200,1700 #60 tab 09/07/24 [Rx] chlordiazePOXIDE HCl [Librium] 25 mg PO TID #6 cap 09/07/24 [Rx] Follow up Appointment(s)/Referral(s): None,Stated [Primary Care Provider] - 1-2 days Activity/Diet/Wound Care/Special Instructions: Continue Tamiflu to complete the course Strongly encourage continued alcohol rehab Avoid alcohol use and exposure Follow-up with primary care provider on discharge Discharge Disposition: HOME SELF-CARE
== END 2024-09-07 15:02 | disposition home or self-care (01) ==
LOC: EC 16:46 → 6NMEDSUR 21:20
PROVIDERS: ADMIT Internal Medicine; ATTEND Internal Medicine
DX: A41.89 Other specified sepsis (principal); J10.1 Influenza due to other identified influenza virus with other respiratory manifestations; F10.239 Alcohol dependence with withdrawal, unspecified; K70.10 Alcoholic hepatitis without ascites; E66.01 Morbid (severe) obesity due to excess calories; E83.42 Hypomagnesemia; F17.200 Nicotine dependence, unspecified, uncomplicated; F31.9 Bipolar disorder, unspecified; F41.9 Anxiety disorder, unspecified; Z68.42 Body mass index [BMI] 45.0-49.9, adult; Z79.899 Other long term (current) drug therapy; Z91.148 Patient's other noncompliance with medication regimen for other reason
CPT/HCPCS: 96376 ×5; 96361; 96366 ×2; 96372; 96365; 96367; 96374; 96375; 99285; 36415; 93005; 87651; 80053 ×3; 80048; 83735 ×3; 85025 ×3; 85027; 81001; 84703; 87040; 87077; 87186; 87636; 71046; G0378 ×4; G0480; J2060 ×4; J2405; J1650 ×2; J3475 ×2; J0131; 80320